=== PATIENT | female | born 1950 | race Caucasian/White ===

== ENCOUNTER → 2018-08-30 | Outpatient (CLI) | payer OTHER ==
[2015-07-20 18:35] VITALS: BP 124/79
--- NOTE | 2018-08-30 09:11 | RAD ---
Two-view lumbar spine dated 08/30/2018. No comparison available. Clinical data indication: Left hip pain. No known injury. FINDINGS: 5 views lumbar spine including oblique views. There is slight dextroconvex scoliotic curvature. Grade 1 anterolisthesis of L4 on L5. Sagittal alignment is otherwise anatomic. Vertebral body heights are maintained. No pars defects on the oblique views. Mild endplate hypertrophic changes throughout with mild to moderate arthrosis lower lumbar apophyseal joints. IMPRESSION: 1. No acute radiographic abnormality. 2. Mild lower lumbar spondylosis. 3. Grade 1 degenerative listhesis at L4-L5. Electronically signed by: Luigi Pendleton MD (08/30/2018 9:08 AM) [facility]
--- NOTE | 2018-08-30 09:22 | RAD ---
Exam performed: Single view pelvis and left hip. HISTORY: Left hip and lower back pain, no known injury DATE OF SERVICE: 08/30/2018. COMPARISON: None available FINDINGS: Single AP view pelvis and 2 views of the left hip is obtained. Moderate narrowing of the left hip joint with periarticular sclerosis consistent with moderate degenerative arthrosis. There is also [id number] narrowing of the right hip joint . Both sacroiliac joints are preserved. There is no acute fracture or dislocation. Nonspecific bowel gas pattern. IMPRESSION: Moderate left degenerative arthrosis with mild to moderate right hip degenerative arthrosis. No acute abnormality seen. Electronically signed by: Kayce Almazan MD (08/30/2018 9:19 AM) [facility]
== END | disposition home or self-care (01) ==
LOC: RAD 08:10
PROVIDERS: ATTEND Physician Assistant Medical
DX: M47.896 Other spondylosis, lumbar region (principal); M43.16 Spondylolisthesis, lumbar region; M16.11 Unilateral primary osteoarthritis, right hip
CPT/HCPCS: 72110; 73502

== ENCOUNTER → 2018-09-14 | Outpatient (CLI) | payer OTHER ==
[2015-07-20 18:35] VITALS: BP 124/79
[~2018-09-14] MED LIST: IOHEXOL 240 MG/ML 50ML VIAL. ONE
--- NOTE | 2018-09-14 12:36 | RAD ---
EXAM: Abdomen and pelvis CT without intravenous contrast. HISTORY: Right pelvic and groin pain. TECHNIQUE: Computed tomographic images of the abdomen and pelvis were obtained without contrast. Multiplanar reformatting was performed. *One or more of the following individualized dose reduction techniques were utilized for this examination: 1. Automated exposure control. 2. Adjustment of the mA and/or kV according to patient size. 3. Use of iterative reconstruction technique. COMPARISON: 11/12/2015. FINDINGS: Evaluation of the lower thorax demonstrates no infiltrate, pleural effusion or suspicious pulmonary nodule. There is a small nonspecific distal paraesophageal lymph node. There is hepatomegaly and hepatic steatosis. There is hepatic surface nodularity suggesting superimposed cirrhosis. There are tiny hypodense lesions within the superior liver which are too small to characterize in the absence of contrast, possibly representing cysts. The gallbladder is surgically absent. The pancreas is unremarkable. The spleen is normal in size. The adrenal glands are unremarkable. The kidneys are both under rotated. There are dilated right greater than left renal pelves, likely due to extrarenal pelves. There are punctate nonobstructing renal stones, the largest of which measure 1 mL and. The urinary bladder is unremarkable. There is colonic diverticulosis without evidence of diverticulitis. There is no bowel obstruction. The uterus is surgically absent. There is no lymphadenopathy. There is grade 1 anterolisthesis of L4 on L5. There is associated degenerative change with foraminal and central canal stenosis at this level. There is bilateral hip osteoarthritis. There is lumbar scoliosis. IMPRESSION: 1. Colonic diverticulosis without evidence of diverticulitis. 2. Hepatomegaly and hepatic steatosis. There are superimposed hepatic surface nodularity suggesting cirrhosis. Correlate with liver function laboratory values. There may be tiny hepatic cysts, difficult to confirm in the absence of contrast. 3. Dilated right greater than left renal pelves, similar compared to the prior study and likely due to extrarenal pelves. There are tiny nonobstructing renal stones. Electronically signed by: Viridiana Love MD (09/14/2018 12:33 PM) [place] [id number]
== END | disposition home or self-care (01) ==
LOC: CT 08:46
PROVIDERS: ATTEND Physician Assistant Medical
DX: K57.30 Diverticulosis of large intestine without perforation or abscess without bleeding (principal); K76.0 Fatty (change of) liver, not elsewhere classified; M16.0 Bilateral primary osteoarthritis of hip; M41.86 Other forms of scoliosis, lumbar region; M48.061 Spinal stenosis, lumbar region without neurogenic claudication; R16.0 Hepatomegaly, not elsewhere classified
CPT/HCPCS: 74176

== ENCOUNTER → 2018-09-24 | Outpatient (CLI) | payer OTHER ==
[2015-07-20 18:35] VITALS: BP 124/79
[~2018-09-24] MED LIST changes: +BUPIVACAINE MPF 0.25% 10 ML VIAL. ONE; +DEXAMETHASONE SOD PHOS 10 MG/ML VIAL ONE; -IOHEXOL 240 MG/ML 50ML VIAL. ONE; +IOHEXOL 300 MG/ML 50 ML VIAL. ONE; +LIDOCAINE 1% PF 30 ML VIAL. ONE
== END | disposition home or self-care (01) ==
LOC: SURG 11:59
PROVIDERS: ATTEND Anesthesiology Pain Medicine
DX: M54.5 Low back pain (principal); E11.9 Type 2 diabetes mellitus without complications; M48.061 Spinal stenosis, lumbar region without neurogenic claudication
CPT/HCPCS: 82947; 99204; J1100; J2001; J3490; Q9967

== ENCOUNTER 2020-11-15 13:12 | Emergency (ER) | payer MEDICARE, OTHER ==
[~2020-11-15] VITALS: Ht 156.2 cm; Wt 66.4 kg
[2020-11-15] MEDS ORDERED: HYDROcodone/APAP 5/325MG 1 TAB TABLET PO ONE (14:00)
[2020-11-15] MEDS ORDERED: DOXY-96 PO (14:01)
--- NOTE | 2020-11-15 14:02 | PHYS DOC ---
Past History Past Medical History: Hyperthyroid, UTI (HITESH JOVEL APRN) Past Surgical History: Hysterectomy (HITESH JOVEL APRN) Alcohol Use: None Drug Use: None (HITESH JOVEL APRN) General Adult EDM: Chief Complaint: ANIMAL BITE HPI: HPI: Patient is a 69-year-old female presents with dog bite to left hand. Patient states that she was at the park when her dog got loose and ran over to some other dogs. When she tried to get her dog, the other dog bit her hand. Patient has full range of motion of fingers and hand. Bleeding is controlled. Patient states that she cleaned the wound out before arriving to the emergency room. Patient unsure of last tetanus. (HITESH JOVEL APRN) Review of Systems: Review of Systems: Constitutional: Denies fever or chills Eyes: Denies change in visual acuity HENT: Denies nasal congestion or sore throat Respiratory: Denies cough or shortness of breath Cardiovascular: Denies chest pain or edema GI: Denies abdominal pain, nausea, vomiting, bloody stools or diarrhea : Denies dysuria Musculoskeletal: Denies back pain or joint pain Integument: Reports wound to left hand after dog bite Neurologic: Denies headache, focal weakness or sensory changes Endocrine: Denies polyuria or polydipsia Lymphatic: Denies swollen glands Psychiatric: Denies depression or anxiety (HITESH JOVEL APRN) Allergies: Allergies: Allergies Coded Allergies Type Severity Reaction Last Updated Verified Penicillins Allergy Unknown 04/21/14 Yes (HITESH JOVEL APRN) Physical Exam: PE: Constitutional: Well developed, well nourished, no acute distress, non-toxic appearance. [] HENT: Normocephalic, atraumatic, bilateral external ears normal, oropharynx moist, no oral exudates, nose normal. [] Eyes: PERRLA, EOMI, conjunctiva normal, no discharge. [] Neck: Normal range of motion, no tenderness, supple, no stridor. [] Cardiovascular:Heart rate regular rhythm, no murmur [] Lungs & Thorax: Bilateral breath sounds clear to auscultation [] Abdomen: Bowel sounds normal, soft, no tenderness, no masses, no pulsatile masses. [] Skin: Multiple abrasions to left hand from dog bite. Back: No tenderness, no CVA tenderness. [] Extremities: No tenderness, no cyanosis, no clubbing, ROM intact, no edema. [] Neurologic: Alert and oriented X 3, normal motor function, normal sensory function, no focal deficits noted. [] Psychologic: Affect normal, judgement normal, mood normal. [] (HITESH JOVEL APRN) Current Patient Data: Vital Signs: Vital Signs Date Time Temp Pulse Resp B/P (MAP) Pulse Ox O2 Delivery O2 Flow Rate FiO2 11/15/20 13:12 135 24 134/87 (103) 96 Room Air (HITESH JOVEL APRN) EKG: EKG: [] (HITESH JOVEL APRN) Radiology/Procedures: Radiology/Procedures: []Left hand 3 views. HISTORY: Dog bite 3 views were taken of the left hand. There is evidence of arthritis with joint space narrowing at the interphalangeal joints most prominent at the proximal interphalangeal joints of the second third fingers but also involving other fingers. There is no acute fracture. IMPRESSION: 1. Arthritis left hand. 2. No acute fracture. Electronically signed by: Beto Castro MD (11/15/2020 2:50 PM) [id number] (HITESH JOVEL APRN) Heart Score: C/O Chest Pain: No Risk Factors: Risk Factors: DM, Current or recent (<one month) smoker, HTN, HLP, family history of CAD, obesity. Risk Scores: Score 0 - 3: 2.5% MACE over next 6 weeks - Discharge Home Score 4 - 6: 20.3% MACE over next 6 weeks - Admit for Clinical Observation Score 7 - 10: 72.7% MACE over next 6 weeks - Early Invasive Strategies (HITESH JOVEL APRN) Course & Med Decision Making: Course & Med Decision Making Pertinent Labs and Imaging studies reviewed. (See chart for details) [] 69-year-old female with wound to left hand after being bit by a dog at the park. Patient states that the other dog have been up-to-date on vaccinations. Patient states that she cleaned out wound after the incident. Patient has full range of motion of hand and fingers. Wound was cleaned again in the emergency room. Patient unsure of last tetanus, tetanus vaccination given while in the emergency room. X-ray of left hand ordered to rule out fracture or foreign body. X-ray negative for fracture or foreign body. Hydrocodone given for pain while in the emergency room. Patient sent home with doxycycline to prevent infection. Patient instructed to take antibiotics as directed and follow-up with her PCP if she has further concerns. Patient to return emergency room with worsening symptoms. Patient is appreciative and okay with discharge plan. (HITESH JOVEL APRN) [place]on Disclaimer: Dragon Disclaimer: This electronic medical record was generated, in whole or in part, using a voice recognition dictation system. (HITESH JOVEL APRN) Attending Co-Sign The patient was seen and interviewed as well as examined at the bedside. The chart was reviewed. The case was discussed. Agree with the plan of care. (FIORELLA SIMENTAL DO) Departure Departure: Impression: Primary Impression: Animal bite of hand Qualified Codes: S61.452A - Open bite of left hand, initial encounter Disposition: HOME / SELF CARE / HOMELESS Condition: STABLE Referrals: CHACHO ROLDAN (PCP) Patient Instructions: Animal Bite, [id number] Additional Instructions: Were seen in the emergency room after an animal bite to your left hand. Your wound was cleaned and tetanus vaccination was given. Hydrocodone for pain was given. Hand x-ray was negative for fracture or foreign body. You can take Tylenol at home for discomfort. Can also use ice to the area to help with pain. Please take the antibiotic prescribed in full and as directed to prevent infection. Please follow-up with your PCP with further concerns or return to the emergency room with worsening symptoms or complaints. EMERGENCY DEPARTMENT GENERAL DISCHARGE INSTRUCTIONS Thank you for coming to [facility] (ED) today and trusting us with you care. We trust that you had a positivie experience in our Emergency Department. If you wish to speak to the department management, you may call the director at [phone]. YOUR FOLLOW UP INSTRUCTIONS ARE FOLLOWS: 1. Do you have a private Doctor? If you do not have a private doctor, please ask for a resource list of physicians or clinics that may be able to assist you with follow up care. 2. The Emergency Physician has interpreted your x-rays. The X-Ray specialist will also review them. If there is a change in the findings, you will be notified in 48 h ours when at all possible. 3. A lab test or culture has been done, your results will be reviewed and you will be notified if you need a change in treatment. ADDITIONAL INSTRUCTIONS AND INFORMATION: 1. Your care today has been supervised by a physician who is specially trained in emergency care. Many problems require more than one evaluation for a complete diagnosis and treatment. We recommend that you schedule your follow up appointment as recommended to ensure complete treatment of you illness or injury. If you are unable to obtain follow up care and continue to have a problem, or if your condition worsens, we recommend that you return to the ED. 2. We are not able to safely determine your condition over the phone nor are we able to give sound medical advice over the phone. For these safety reasons, if you call for medical advice we will ask you to come to the ED for further evaluation. 3. If you have any questions regarding these discharge instructions please call the ED at [phone]. SAFETY INFORMATION: In the interest of safety, wellness, and injury prevention; we encourage you to wear your sealbelt, if you smoke; quite smoking, and we encourage family to use a protective helmet for bicycling and other sporting events that present an increased risk for head injury. IF YOUR SYMPTOMS WORSEN OR NEW SYMPTOMS DEVELOP, OR YOU HAVE CONCERNS ABOUT YOUR CONDITION; OR IF YOUR CONDITION WORSENS WHILE YOU ARE WAITING FOR YOUR FOLLOW UP APPOINTMENT; EITHER CONTACT YOUR PRIMARY CARE DOCTOR, THE PHYSICIAN WHOSE NAME AND NUMBER YOU WERE GIVEN, OR RETURN TO THE ED IMMEDIATELY. Scripts Doxycycline Hyclate (DOXYCYCLINE HYCLATE) 100 Mg Tablet.dr Rangel TAB PO BID for dog bite for 14 Days, #28 TAB Prov: HITESH JOVEL APRN 11/15/20 HITESH JOVEL APRN November 15, 2020 14:02 FIORELLA SIMENTAL DO November 16, 2020 06:20
[2020-11-15] MEDS ORDERED: DIPH,PERTUSS(ACELL),TET VAC/PF 0.5 ML SYRINGE. VAX IM ONE (14:15)
--- NOTE | 2020-11-15 14:53 | RAD ---
Left hand 3 views. HISTORY: Dog bite 3 views were taken of the left hand. There is evidence of arthritis with joint space narrowing at the interphalangeal joints most prominent at the proximal interphalangeal joints of the second third fin gers but also involving other fingers. There is no acute fracture. IMPRESSION: 1. Arthritis left hand. 2. No acute fracture. Electronically signed by: Beto Castro MD (11/15/2020 2:50 PM) [id number]
[2020-11-15 15:05] VITALS: BP 107/72
== END 2020-11-15 15:05 | disposition home or self-care (01) ==
LOC: ER 13:12
DX: S61.452A Open bite of left hand, initial encounter (principal); Z88.0 Allergy status to penicillin; Z23 Encounter for immunization; Z90.710 Acquired absence of both cervix and uterus; W54.0XXA Bitten by dog, initial encounter; Y93.89 Activity, other specified; Y92.89 Other specified places as the place of occurrence of the external cause; Y99.8 Other external cause status
CPT/HCPCS: 73130; 90471; 90715; 99283-25

== ENCOUNTER → 2021-08-28 | Outpatient (CLI) | payer MEDICARE ==
[~2021-08-28] MED LIST changes: -BUPIVACAINE MPF 0.25% 10 ML VIAL. ONE; -DEXAMETHASONE SOD PHOS 10 MG/ML VIAL ONE; +DOXY-96 PO; -IOHEXOL 300 MG/ML 50 ML VIAL. ONE; -LIDOCAINE 1% PF 30 ML VIAL. ONE
--- NOTE | 2021-08-28 11:01 | RAD ---
PA CHEST AND right RIB SERIES Clinical Indication: Reason: FALL DOWN STAIRS ONE MONTH AGO RIGHT RIB PAIN / Spl. Instructions: / Hi story: Comparison: None. Findings: The cardiomediastinal silhouette is normal. Pulmonary vasculature is normal. The lungs are clear. No pleural effusion or pneumothorax is seen. There is minimal left convexity lumbar scoliosis. Cholecys tectomy clips. There is no acute displaced rib fracture. A nondisplaced or subtle rib fracture could be obscured. IMPRESSION: 1. No acute cardiopulmonary process. 2. No acute displaced rib fracture. Electronically signed by: Jair Gilman MD (08/28/2021 10:58 AM) [id number]
== END ==
LOC: RAD 08:45
PROVIDERS: ATTEND Physician Assistant Medical
DX: R07.89 Other chest pain (principal); M41.86 Other forms of scoliosis, lumbar region; Z90.49 Acquired absence of other specified parts of digestive tract
CPT/HCPCS: 71101